=== PATIENT | female | born 1985 | race Hispanic/Latino ===

== ENCOUNTER 2017-03-04 17:04 | Outpatient (CLI) | payer BC, MEDICAID ==
[2017-03-04 18:02] VITALS: BP 130/74
[2017-03-04] MEDS ORDERED: VISTARIL PO ONE (19:00)
== END 2017-03-04 18:30 | disposition home or self-care (01) ==
LOC: TRG 17:04
PROVIDERS: ATTEND Obstetrics & Gynecology
DX: O47.1 False labor at or after 37 completed weeks of gestation (principal); Z3A.38 38 weeks gestation of pregnancy
CPT/HCPCS: 59025; Q0177